=== PATIENT | male | born 1985 | race Caucasian/White ===

== ENCOUNTER 2017-04-04 00:51 | Emergency (ER) | payer BC, OTHER ==
[2017-04-04] MEDS ORDERED: Ibuprofen TAB* 600 MG PO ONE (01:32)
[2017-04-04] MEDS ORDERED: Ibuprofen TAB* 600 MG ONE (01:34)
[2017-04-04 02:11] VITALS: BP 123/76
--- NOTE | 2017-04-04 02:25 | ED ---
I, Joe,Klarissa, scribed for Eliot Larson MD on 04/04/17 at 0135 . Lower Extremity - HPI Summary HPI Summary: This 31 y/o male presents to ED for laceration RLE anterior monroy. Pt was loading up his truck at 2330 PM tonight when he kicked into table saw. Laceration of 3 cm is noted. Bleeding is currently controlled. Negative weakness. Pt was able to ambulate into ED room without problem. Pt is UTD with last shot 2 years ago. PMHx includes ADD which is controlled with Vyvanse. Pt is currently smoker, occasional MJ user. Plan of care involving laceration repair is discussed with pt, and pt is agreeable. Pt requests ibuprofen or APAP for the pain control. - History of Current Complaint Chief Complaint: EDExtremityLower Stated Complaint: BONE EXPOSED ON RUIGHT MONROY Time Seen by Provider: 04/04/17 01:22 Hx Obtained From: Patient Onset of Pain: Immediate Onset/Duration: Still Present Pain Intensity: 3 Pain Scale Used: 0-10 Numeric Timing: Constant Location: Is Discrete @ - RLE anterior monroy Character Of Pain: Dull Associated Signs And Symptoms: Positive: Other - Bleeding controlled Aggravating Factor(s): Nothing Alleviating Factor(s): Nothing Able to Bear Weight: Yes - Allergies/Home Medications Allergies/Adverse Reactions: Allergies Allergy/AdvReac Type Severity Reaction Status Date / Time No Known Allergies Allergy Verified 03/21/14 10:54 PMH/Surg Hx/FS Hx/Imm Hx Cardiovascular History: Denies: Other Cardiovascular Problems/Disorders Respiratory History: Denies: Other Respiratory Problems/Disorders GI History: Denies: Other GI Disorders Musculoskeletal History: Denies: Other Musculoskeletal History Sensory History: Reports: Hx Contacts or Glasses - GLASSES Denies: Hx Hearing Aid Opthamlomology History: Reports: Hx Contacts or Glasses - GLASSES Neurological History: Denies: Other Neuro Impairments/Disorders - Surgical History Surgery Procedure, Year, and Place: TONSILECTOMY A CHILD Hx Anesthesia Reactions: No - Immunization History Date of Tetanus Vaccine: 2009 Infectious Disease History: No Infectious Disease History: Denies: Traveled Outside the [place] in Last 30 Days - Family History Known Family History: Negative: Cardiac Disease - Social History Alcohol Use: Daily Alcohol Amount: 2 DAILY Hx Substance Use: Yes Substance Use Type: Reports: Marijuana Substance Use Comment - Amount & Last Used: none today Hx Tobacco Use: Yes Smoking Status (MU): Current Some Day Smoker Amount Used/How Often: 10-12 CIGS A DAY Have You Smoked in the Last Year: Yes Review of Systems Negative: Fever Positive: Other - RLE anterior monroy laceration All Other Systems Reviewed And Are Negative: Yes Physical Exam - Summary Physical Exam Summary: The patient is well-nourished in no acute distress and in no acute pain. The skin is noted with laceration on RLE anterior monroy which measures 3cm x1cm wide into subcutaneous skin. There was no osseous tenderness or step off. Distal neurovascular was intact. Neck is supple with full range of motion and non-tender. There are no carotid bruits. There is no neck vein distension. Respiratory: Chest is non-tender. Lungs are clear to auscultation and breath sounds are symmetrical and equal. Cardiovascular: DP pulse intact and symmetrical BLE. Musculoskeletal: There is no back pain noted. Extremities are non-tender with full range of motion. There is good capillary refill. There is no peripheral edema or calf tenderness elicited. Neurological: Patient is alert and oriented to person, place and time. The patient has symmetrical motor strength in BLE. Cranial nerves are grossly intact. Deep tendon reflexes are symmetrical and equal in all four extremities. Psychiatric: The patient has an appropriate affect and does not exhibit any anxiety or depression. Triage Information Reviewed: Yes Vital Signs On Initial Exam: Initial Vitals Temp Pulse Resp BP Pulse Ox 98.5 F 74 16 122/80 99 04/04/17 01:01 04/04/17 01:01 04/04/17 01:01 04/04/17 01:01 04/04/17 01:01 Vital Signs Reviewed: Yes Procedures - Laceration/Wound Repair 1 Location: lower extremity - RLE anterior monroy Description: Linear Anesthesia: 2.0%, Lido Irrigated w/ Saline (ccs): 500 Laceration/Wound Explored: clean Closure: Single Layer - 6. Debried and undermined with scalpel, sutured in subcutanous level, Multilayer, Aldo #__ - Skin closed over with 8x aldo Debridement: minimal Suture Type: Vicryl - 3-0 vicyl. Wound explored Number of Sutures: 6 Layer Closure?: Yes - Subcutanous. Skin closed over with 8x aldo Diagnostics - Vital Signs Vital Signs Temp Pulse Resp BP Pulse Ox 04/04/17 01:01 98.5 F 74 16 122/80 99 - Laboratory Lab Statement: Any lab studies that have been ordered have been reviewed, and results considered in the medical decision making process. Lower Extremity Course/Dx - Course Assessment/Plan: This 31 y/o male presents to ED for RLE anterior monroy laceration since 2330 PM tonight. Pt was loading up his truck when he kicked into table saw. 3 cm laceration is noted with controlled bleeding at time of initial evaluation. Laceration was repaired with 3-0 vicryl x6 in subcutanoues level after debriement and wound exploration. Laceration was noted with minimal FB and dirt. Wound was irrigated with 500 cc NS. Lido 2 %. Wound was closed over with 8 x staple. Plan of care involving staple removal after 10 days is discussed with pt, and he is agreeable. - Diagnoses Differential Diagnosis/HQI/PQRI: Positive: Other - laceration Provider Diagnoses: Laceration Discharge - Discharge Plan Condition: Stable Disposition: HOME Patient Education Materials: Laceration (ED), Staple Care (ED) Referrals: [facility] [place] [facility] [Outside] Additional Instructions: Have your staple removed in 10 days. The documentation as recorded by the Joe elkins Soohyun accurately reflects the service I personally performed and the decisions made by Neo malcolm Drew, MD.
== END 2017-04-04 02:09 | disposition home or self-care (01) ==
LOC: ED 00:51
DX: S81.811A Laceration without foreign body, right lower leg, initial encounter (principal); W22.8XXA Striking against or struck by other objects, initial encounter; Y93.9 Activity, unspecified; Y92.9 Unspecified place or not applicable; F17.210 Nicotine dependence, cigarettes, uncomplicated
CPT/HCPCS: 12002; 99282; A9270-GY